=== PATIENT | male | born 1955 | race Caucasian/White ===

== ENCOUNTER 2017-10-17 18:47 | Emergency (ER) | payer MEDICARE ==
[~2017-10-17] VITALS: Ht 182.9 cm; Wt 80.0 kg
[~2017-10-17 18:47] MED LIST: DIPH-423 PO; EPIN0.3P8 IM; PRED50TA PO
[2017-10-17] MEDS ORDERED: orphenadrine citrate 60mg/2ml inj. IM ONE (19:40)
[2017-10-17] MEDS ORDERED: HYDROmorphone 1 mg/ml syringe IM ONE (19:40)
[2017-10-17] MEDS ORDERED: ORPH100T2 PO (19:44)
[2017-10-17] MEDS ORDERED: HYDR-565 PO (19:44)
[2017-10-17] MEDS ORDERED: HYDROmorphone 2mg/ml vial IM ONE (19:50)
[2017-10-17 20:19] VITALS: BP 133/76
== END 2017-10-17 20:20 | disposition home or self-care (01) ==
LOC: ER 18:47
DX: M54.5 Low back pain (principal); E11.9 Type 2 diabetes mellitus without complications
CPT/HCPCS: 72100; 96372; 99284; J1170; J2360

== ENCOUNTER 2020-01-25 14:00 | Emergency (ER) | payer MEDICARE ==
[~2020-01-25] VITALS: Ht 180.3 cm; Wt 81.8 kg
[~2020-01-25 14:00] MED LIST changes: +ORPH100T2 PO
[2020-01-25 14:41] LABS: BASOPHILS # (AUTO) 0.1 X10'3 (0-0.2); BASOPHILS % (AUTO) 0.8 % (0-1); EOSINOPHILS # (AUTO) 0.1 X10'3 (0-0.9); EOSINOPHILS % (AUTO) 0.6 % (0-6); HEMATOCRIT 43.8 % (42.0-52.0); HEMOGLOBIN 14.7 g/dl (14.0-17.9); LYMPHOCYTES # (AUTO) 1.1 X10'3 (1.1-4.8); LYMPHOCYTES % (AUTO) 10.6 % (21-51); MEAN CORPUSCULAR HEMOGLOBIN 32.1 PG (27.0-31.0); MEAN CORPUSCULAR HGB CONC 33.6 g/dL (33.0-36.5); MEAN CORPUSCULAR VOLUME 95.7 FL (78-98); MEAN PLATELET VOLUME 7.6 FL (7.4-10.4); MONOCYTES # (AUTO) 0.9 X10'3 (0-0.9); MONOCYTES % (AUTO) 8.2 % (2-12); NEUTROPHILS # (AUTO) 8.4 X10'3 (1.8-7.7); NEUTROPHILS % (AUTO) 79.8 % (42-75); PLATELET COUNT 292 X10'3 (140-440); RED BLOOD COUNT 4.58 X10'6 (4.70-6.10); RED CELL DISTRIBUTION WIDTH 13.3 % (11.5-14.5); WHITE BLOOD COUNT 10.5 X10'3 (4.5-11.0)
[2020-01-25 14:59] LABS: ALANINE AMINOTRANSFERASE 26 U/L (12-78); ALBUMIN 4.3 G/DL (3.4-5.0); ALBUMIN/GLOBULIN RATIO 1.3 (1.1-1.5); ALKALINE PHOSPHATASE 81 IU/L (46-116); ANION GAP 7 (8-16); ASPARTATE AMINO TRANSFERASE 38 U/L (10-37); BLOOD UREA NITROGEN 17 MG/DL (7-18); BUN/CREATININE RATIO 11.4 (5.4-32.0); CALCIUM 9.9 MG/DL (8.5-10.1); CHLORIDE 101 MMOL/L (99-107); CREATININE 1.49 MG/DL (0.60-1.10); GLUCOSE 171 MG/DL (70-104); POTASSIUM 4.8 MMOL/L (3.5-5.1); SODIUM 137 MMOL/L (135-145); TOTAL CARBON DIOXIDE 28.7 MMOL/L (24-32); TOTAL PROTEIN 7.7 G/DL (6.4-8.2); eGFR 48 ML/MIN
[2020-01-25 15:34] VITALS: BP 126/71
== END 2020-01-25 15:37 | disposition home or self-care (01) ==
LOC: ER 14:00
DX: E86.0 Dehydration (principal); R55 Syncope and collapse; E11.9 Type 2 diabetes mellitus without complications; G89.29 Other chronic pain; F17.200 Nicotine dependence, unspecified, uncomplicated; Z98.890 Other specified postprocedural states; Z79.899 Other long term (current) drug therapy
CPT/HCPCS: 36415; 71045; 80053; 84484; 85025; 93005; 99285

== ENCOUNTER 2020-03-06 15:30 | Emergency (ER) | payer MEDICARE ==
[~2020-03-06] VITALS: Ht 180.3 cm; Wt 80.5 kg
[2020-03-06] MEDS ORDERED: LIDOcaine 5% patch TP STA (16:22)
[2020-03-06] MEDS ORDERED: LIDO700A32 TOP (16:32)
[2020-03-06 16:47] VITALS: BP 112/76
== END 2020-03-06 16:50 | disposition home or self-care (01) ==
LOC: ER 15:31
DX: S20.212A Contusion of left front wall of thorax, initial encounter (principal); E11.9 Type 2 diabetes mellitus without complications; G89.29 Other chronic pain; Z98.890 Other specified postprocedural states; X08.8XXA Exposure to other specified smoke, fire and flames, initial encounter; Y93.89 Activity, other specified; Y92.89 Other specified places as the place of occurrence of the external cause; Y99.8 Other external cause status
CPT/HCPCS: 71045; 99284

== ENCOUNTER 2020-08-14 12:30 | Outpatient (CLI) | payer MEDICARE ==
[~2020-08-14] VITALS: Ht 180.3 cm; Wt 82.6 kg
[~2020-08-14 12:30] MED LIST changes: +LIDO700A32 TOP
[2020-08-14] MEDS ORDERED: PREG75CA75 PO (13:26)
[2020-08-14] MEDS ORDERED: LISI-604 PO (13:26)
[2020-08-14] MEDS ORDERED: MELO-102 PO (13:26)
[2020-08-14] MEDS ORDERED: FLO0.4C PO (13:26)
[2020-08-14] MEDS ORDERED: ATOR40TA72 PO (13:26)
[2020-08-14] MEDS ORDERED: ASPI81TA52 PO (13:26)
[2020-08-14 13:34] LABS: BASOPHILS % (AUTO) 0.2 % (0-1); EOSINOPHILS # (AUTO) 0.1 X10'3 (0-0.9); EOSINOPHILS % (AUTO) 2.3 % (0-6); LYMPHOCYTES # (AUTO) 1.4 X10'3 (1.1-4.8); LYMPHOCYTES % (AUTO) 44.6 % (21-51); MEAN CORPUSCULAR HEMOGLOBIN 32.1 PG (27.0-31.0); MEAN CORPUSCULAR VOLUME 94.5 FL (78-98); MONOCYTES # (AUTO) 0.7 X10'3 (0-0.9); MONOCYTES % (AUTO) 20.8 % (2-12); NEUTROPHILS % (AUTO) 32.1 % (42-75); PRE OP HEMATOCRIT 44.2 % (42.0-52.0); PRE OP PLATELET COUNT 186 X10'3 (140-440); RED BLOOD COUNT 4.67 X10'6 (4.70-6.10); RED CELL DISTRIBUTION WIDTH 13.6 % (11.5-14.5)
[2020-08-14 13:55] LABS: TOTAL CELLS COUNTED 100
[2020-08-14 13:56] LABS: PLATELET ESTIMATE NORMAL
[2020-08-14 14:09] LABS: ALBUMIN 3.8 G/DL (3.4-5.0); ALBUMIN/GLOBULIN RATIO 1.1 (1.1-1.5); ALKALINE PHOSPHATASE 94 IU/L (46-116); BLOOD UREA NITROGEN 12 MG/DL (7-18); BUN/CREATININE RATIO 14.5 (5.4-32.0); CALCIUM 8.8 MG/DL (8.5-10.1); CHLORIDE 102 MMOL/L (99-107); CREATININE 0.83 MG/DL (0.60-1.10); PRE OP ALT 49 U/L (30-65); PRE OP ANION GAP 7 (8-16); PRE OP AST 62 U/L (10-37); PRE OP BILIRUB, TOTAL 0.8 MG/DL (0.0-1.0); PRE OP GLUCOSE 92 MG/DL (70-104); PRE OP POTASSIUM 4.2 MMOL/L (3.4-5.1); PRE OP SODIUM 139 MMOL/L (135-145); TOTAL CARBON DIOXIDE 29.8 MMOL/L (24-32); TOTAL PROTEIN 7.3 G/DL (6.4-8.2); eGFR > 90 ML/MIN
[2020-08-14 14:41] LABS: HEMOGLOBIN A1C 6.7 % (4.5-6.2)
[2020-08-19] MEDS ORDERED: ringers solution, lacted 1,000 ML IV SCH (05:00)
[2020-08-19] MEDS ORDERED: tranexamic acid inj. 820 MG in normal saline 100ml IV soln 91.8 ML IV ONE ×2 (06:00→07:30)
[2020-08-19] MEDS ORDERED: vancomycin 1,500 MG in NS 300ml IV soln IV ONE (06:00)
[2020-08-19] MEDS ORDERED: famotidine 20mg tablet PO ONE (06:00)
[2020-08-19] MEDS ORDERED: ceFAZolin 2gm in dextrose, iso 50 ML IV ONE (06:00)
== END 2020-08-14 23:59 | disposition home or self-care (01) ==
LOC: PRE-OP 12:30 → EDSTATUS 08-19 08:45
PROVIDERS: ATTEND Orthopaedic Surgery
DX: M75.121 Complete rotator cuff tear or rupture of right shoulder, not specified as traumatic (principal); Z53.8 Procedure and treatment not carried out for other reasons; M19.011 Primary osteoarthritis, right shoulder; U07.1 COVID-19; E10.9 Type 1 diabetes mellitus without complications; F12.90 Cannabis use, unspecified, uncomplicated; Z96.41 Presence of insulin pump (external) (internal); Z87.891 Personal history of nicotine dependence; Z98.890 Other specified postprocedural states; Z79.899 Other long term (current) drug therapy; Z79.82 Long term (current) use of aspirin; Z72.89 Other problems related to lifestyle
CPT/HCPCS: 36415; 80053; 83036; 85007; 85025; 87081; 87635; 93005; J3370; J7040; J7120

== ENCOUNTER 2021-08-22 08:31 | Day surgery (SDC) | payer MEDICARE ==
[2021-08-13 11:52] LABS: CLARITY,URINE CLEAR (Clear); COLOR,URINE YELLOW (Yellow); GLUCOSE, URINE NEGATIVE (Neg); KETONES,URINE NEGATIVE (Neg); LEUKOCYTE ESTERASE ,URINE NEGATIVE (Neg); NITRITES, URINE NEGATIVE (Neg); OCCULT BLOOD,URINE NEGATIVE (Neg); PH,URINE 5.5 (4.8-8.0); PROTEIN,URINE NEGATIVE (Neg)
[2021-08-13 11:56] LABS: BASOPHILS # (AUTO) 0.1 X10'3 (0-0.2); BASOPHILS % (AUTO) 1.4 % (0-1); EOSINOPHILS # (AUTO) 0.1 X10'3 (0-0.9); EOSINOPHILS % (AUTO) 1.8 % (0-6); LYMPHOCYTES # (AUTO) 1.2 X10'3 (1.1-4.8); LYMPHOCYTES % (AUTO) 23.6 % (21-51); MEAN CORPUSCULAR HEMOGLOBIN 33.3 PG (27.0-31.0); MEAN CORPUSCULAR HGB CONC 35.1 g/dL (33.0-36.5); MEAN CORPUSCULAR VOLUME 94.9 FL (78-98); MEAN PLATELET VOLUME 7.5 FL (7.4-10.4); MONOCYTES # (AUTO) 0.6 X10'3 (0-0.9); MONOCYTES % (AUTO) 11.2 % (2-12); NEUTROPHILS # (AUTO) 3.2 X10'3 (1.8-7.7); PRE OP HEMATOCRIT 39.1 % (42.0-52.0); PRE OP HEMOGLOBIN 13.7 g/dL (14.0-17.9); PRE OP PLATELET COUNT 296 X10'3 (140-440); RED BLOOD COUNT 4.12 X10'6 (4.70-6.10); RED CELL DISTRIBUTION WIDTH 14.1 % (11.5-14.5)
[2021-08-13 11:56] LABS: UA COLLECTION TYPE CLN CATCH MIDSTREAM
[2021-08-13 12:07] LABS: ALBUMIN/GLOBULIN RATIO 1.2 (1.1-1.5); ALKALINE PHOSPHATASE 64 IU/L (46-116); BLOOD UREA NITROGEN 15 MG/DL (7-18); BUN/CREATININE RATIO 16.1 (5.4-32.0); CALCIUM 9.1 MG/DL (8.5-10.1); CHLORIDE 105 MMOL/L (99-107); CREATININE 0.93 MG/DL (0.60-1.10); PRE OP ALT 31 U/L (30-65); PRE OP ANION GAP 8 (8-16); PRE OP AST 36 U/L (10-37); PRE OP BILIRUB, TOTAL 0.8 MG/DL (0.0-1.0); PRE OP GLUCOSE 81 MG/DL (70-104); PRE OP POTASSIUM 4.2 MMOL/L (3.4-5.1); PRE OP SODIUM 142 MMOL/L (135-145); TOTAL CARBON DIOXIDE 28.8 MMOL/L (24-32); TOTAL PROTEIN 7.4 G/DL (6.4-8.2); eGFR 82 ML/MIN
[~2021-08-22] VITALS: Ht 180.3 cm; Wt 81.6 kg
[2021-08-22] VITALS (15 sets, daily range): BP systolic 106–148; BP diastolic 50–92
[~2021-08-22 08:31] MED LIST changes: +ATOR40TA72 PO; +BUPR-317 PO; -DIPH-423 PO; -EPIN0.3P8 IM; +FLO0.4C PO; +INSULIN PUMP; -LIDO700A32 TOP; +LISI5TAB22 PO; +MELO-102 PO; -ORPH100T2 PO; -PRED50TA PO; +cefazolin/dext.iso 2gm/50ml IV ONE; +famotidine 20mg tablet PO ONE; +ringers solution, lacted 1,000 ML IV SCH
[2021-08-22] MEDS ORDERED: BUPIVAcaine/PF 2.5mg/ml (0.25%) 10ml vial ONE (12:35)
[2021-08-22] MEDS ORDERED: bacitracin 15gm ointment TP ONE (12:35)
[2021-08-22] MEDS ORDERED: LIDOcaine 1%/PF 5ML 10 MG/ML VIAL ONE (14:06)
[2021-08-22] MEDS ORDERED: dexamethasone sod phosphate 10mg/ml inj ONE (14:06)
[2021-08-22] MEDS ORDERED: sevoflurane 250ml liquid IH ONE (14:06)
[2021-08-22] MEDS ORDERED: propofol 10mg/ml 20ml vial IV ONE (14:06)
[2021-08-22] MEDS ORDERED: midazolam 1 mg/ML 2ml injection ONE (14:09)
[2021-08-22] MEDS ORDERED: fentaNYL /PF 50mcg/ml 5ml ampule ONE (14:14)
[2021-08-22] MEDS ORDERED: ePHEDrine 50MG/ML INJ. ONE (15:32)
[2021-08-22] MEDS ORDERED: ondansetron/PF 4mg/2ml inj ONE (15:32)
[2021-08-22] MEDS ORDERED: 0.9 % SODIUM CHLORIDE 10 ML VIAL ONE (15:32)
[2021-08-22] MEDS ORDERED: BUPIVAcaine 0.5% inj/PF 30 ML ONE (15:49)
--- NOTE | 2021-08-22 16:05 | NUR ---
Received from OR via , accompanied by Anesthesiologist DR CHRISTOPHER and report given by Anesthesiolgist. PT PRESENTS [id number] LEFT WRIST, RIGHT FOOT SRESSING DRY AND INTACT, VSS. Addendum: 08/22/21 at 1610 by Stella Ponce RN, RN Amended: Links added.
[2021-08-22] MEDS ORDERED: ketorolac trometh. 30mg/ml inj. IV ONE (16:35)
[2021-08-22] MEDS ORDERED: meperidine/PF 25mg/ml syringe IV PRN (16:35)
[2021-08-22] MEDS ORDERED: ondansetron/PF 4mg/2ml inj IV PRN (16:35)
[2021-08-22] MEDS ORDERED: ringers solution, lacted 1,000 ML IV SCH (16:35)
[2021-08-22] MEDS ORDERED: proCHLORperazine 10 MG/2 ml inj IV PRN (16:35)
[2021-08-22] MEDS: meperidine/PF 25mg/ml syringe IV PRN ×2 (16:41→16:52)
[2021-08-22] MEDS ORDERED: HYDROcodone/acetaminophen 10/325mg tab PO ONE ×2 (17:05→18:00)
--- NOTE | 2021-08-22 18:05 | NUR ---
DISCHARGE CRITERIA MET, DISCHARGE INSTRUCTIONS GIVEN, DEMONSTRATES VERBAL UNDERSTANDING. DISCHARGED HOME IN GOOD CONDITION. Addendum: 08/22/21 at 1842 by Stella Ponce RN, RN Amended: Links added.
== END 2021-08-22 18:05 | disposition home or self-care (01) ==
LOC: PRE-OP 08:31
PROVIDERS: ATTEND Podiatrist Foot & Ankle Surgery
DX: M20.11 Hallux valgus (acquired), right foot (principal); M20.21 Hallux rigidus, right foot; M19.071 Primary osteoarthritis, right ankle and foot; M20.41 Other hammer toe(s) (acquired), right foot; M21.6X1 Other acquired deformities of right foot; M19.011 Primary osteoarthritis, right shoulder; N40.0 Benign prostatic hyperplasia without lower urinary tract symptoms; E10.9 Type 1 diabetes mellitus without complications; I10 Essential (primary) hypertension; Z87.891 Personal history of nicotine dependence; Z72.89 Other problems related to lifestyle; Z79.899 Other long term (current) drug therapy; Z79.4 Long term (current) use of insulin; Z79.82 Long term (current) use of aspirin; Z96.41 Presence of insulin pump (external) (internal); Z20.822 Contact with and (suspected) exposure to COVID-19; Z98.890 Other specified postprocedural states
CPT/HCPCS: 28285; 28750; 36415; 73620; 76000; 80053; 81003; 82948; 85025; 93005; A6223; C1713; J0690; J1100; J1885; J2175; J2250; J2405; J2704; J3010; J3490; J7030; J7120; S0020; U0003; U0005; Z7506; Z7512; A4215; A4618; A6449; A7000

== ENCOUNTER 2024-01-16 10:23 | Emergency (ER) | payer OTHER, MEDICARE, BC ==
[~2024-01-16] VITALS: Ht 180.3 cm; Wt 75.3 kg
[~2024-01-16 10:23] MED LIST changes: -cefazolin/dext.iso 2gm/50ml IV ONE; -famotidine 20mg tablet PO ONE; -ringers solution, lacted 1,000 ML IV SCH
[2024-01-16] MEDS ORDERED: IBUP-1985 PO (12:47)
[2024-01-16] MEDS ORDERED: METH-798 PO (12:47)
[2024-01-16] MEDS: ketorolac trometh. 30mg/ml inj. IM ONE (12:57)
[2024-01-16 13:19] VITALS: BP 125/77; PULSE 67; RESP 16; TEMP 97.9; O2SAT 98
== END 2024-01-16 13:21 | disposition home or self-care (01) ==
LOC: ER 10:24
DX: S33.5XXA Sprain of ligaments of lumbar spine, initial encounter (principal); E11.9 Type 2 diabetes mellitus without complications; Z88.8 Allergy status to other drugs, medicaments and biological substances; Z79.899 Other long term (current) drug therapy; V89.2XXA Person injured in unspecified motor-vehicle accident, traffic, initial encounter; Y93.89 Activity, other specified; Y92.89 Other specified places as the place of occurrence of the external cause; Y99.8 Other external cause status
CPT/HCPCS: 96372; 99283; J1885

== ENCOUNTER 2025-07-10 14:41 | Outpatient (CLI) | payer MEDICARE, OTHER ==
[~2025-07-10 14:41] MED LIST changes: -BUPR-317 PO; +BUPR-726 PO; -FLO0.4C PO; +IBUP600T52 PO; +METH-798 PO; +TAMS-55 PO
--- NOTE | 2025-07-10 16:00 | RADIOLOGY REPORT ---
CLINICAL INFORMATION: Right shoulder pain. TECHNIQUE: Axial CT images of the right shoulder were obtained without IV contrast per [employer] protocol. Coronal and sagittal reformatted images were obtained, reviewed, and stored. All CT scans at this medical facility are performed using dose modulation techniques as appropriate to a performed exam i ncluding the following: Automated exposure control was utilized; adjustment of the MA and/or KV according to patient size; and use of iterative reconstruction technique. CTDIvol = 28.94 mGy DLP = 779.16 mGy-cm COMPARISON: None. FINDINGS: Moderate arthritic changes are seen at the glenohumeral joint with joint space narrowing and sclerosis. There is approximately 7 degrees glenoid retroversion. There is superior subluxation of the humeral head with loss of the acromial humeral interval, which may be seen with rotator cuff tear. Moderate arthritic changes are seen at the acromioclavicular joint. There is a chronic ossicle at the superior aspect of the acromioclavicular joint measuring up to 1.1 cm. Muscle bulk appears within normal limits with no significant fatty atrophy visualized. No other significant soft tissue abnormality identified. There is an irregular nodular opacity in the posterior aspect of the right upper lobe with peripheral ground-glass attenuation measuring up to 3.2 cm in greatest dimension, possibly infectious or inflammatory in nature. IMPRESSION: 1. 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 2. Loss of the acromial humeral interval with associated superior subluxation of the humeral head, may be seen with rotator cuff tear. Correlate with clinical findings. 3. Patchy irregular nodular opacity in the right upper lobe with adjacent ground-glass attenuation along its periphery, possibly infectious or inflammatory in nature. Other etiologies, including malignancy can not be completely excluded. Correlate with clinical findings. Dedicated CT chest recommended, with contrast if possible, to further characterize.
== END 2025-07-10 23:59 | disposition home or self-care (01) ==
LOC: RAD 14:41
PROVIDERS: ATTEND Orthopaedic Surgery
DX: S43.011A Anterior subluxation of right humerus, initial encounter (principal); M19.011 Primary osteoarthritis, right shoulder; M25.511 Pain in right shoulder; X58.XXXA Exposure to other specified factors, initial encounter; Y93.89 Activity, other specified; Y92.89 Other specified places as the place of occurrence of the external cause; Y99.8 Other external cause status
CPT/HCPCS: 73200